=== PATIENT | female | born 1940 | race Caucasian/White ===

== ENCOUNTER → 2020-08-16 | Outpatient (CLI) | payer OTHER ==
[~2020-08-16] MED LIST: AMLODIPINE BESYL5 MG PO; ASPIRIN CHEWABL81 MG PO; CRESTOR5 MG PO; DIOVAN80 MG PO; FLUOCINONIDE TOP; HYDRALAZINE HCL25 MG PO; HYDROCHLOROTH12.5 MG PO; LABETALOL HCL100 MG PO; MEMANTINE HCL E14 MG PO; METFORMIN HCL1000 MG PO; MONTELUKAST SOD10 MG PO; POTASSIUM GLUCO99 MG PO; POTASSIUM99 M1 PO; PROTONIX40 MG PO; ROPINIROLE HCL1 MG PO; TYLENOL325 MG PO; VIT D3 PO; ZINC50 M1 PO
[2020-08-16 12:18] LABS: HEMOGLOBIN 11.9 gm/dl (12.3-15.3); RED BLOOD COUNT 4.4 M/UL (4.00-5.10); WHITE BLOOD COUNT 9.5 K/UL (4.5-11.0)
[2020-08-16 12:45] LABS: BUN/CREATININE RATIO 19 (0-10)
== END ==
LOC: EDSTATUS 11:00 → OPSV2 11:00
PROVIDERS: Internal Medicine Cardiovascular Disease; Orthopaedic Surgery
DX: Z01.818 Encounter for other preprocedural examination (principal); M17.12 Unilateral primary osteoarthritis, left knee
CPT/HCPCS: 36415; 71046; 80053; 80061; 81001; 82550; 83036; 85025; 87081; 93005